=== PATIENT | female | born 2000 | race Caucasian/White ===

== ENCOUNTER 2025-04-25 11:23 | Emergency (ER) | payer SELFPAY ==
[~2025-04-25] VITALS: Ht 154.9 cm; Wt 54.0 kg
[2025-04-25 11:33] VITALS: TEMP 36.7; O2SAT 99
[2025-04-25] MEDS: LIDOCAINE HCL 1% 20ML VIAL INFIL ONE (13:45)
[2025-04-25] MEDS: BACITRACIN ZINC OINT UDPKT TOP ONE (13:46)
[2025-04-25] MEDS: IBUPROFEN 600MG TABLET PO ONE (13:46)
[2025-04-25] MEDS: TETANUS, DIPHTHERIA, PERTUSSIS VAC/PF 0.5ML (>10YR OLD) IM ONE (13:47)
[2025-04-25] MEDS ORDERED: BO1 TP (14:45)
[2025-04-25 15:30] VITALS: BP 104/69; PULSE 59; RESP 16; O2SAT 100
== END 2025-04-25 15:51 | disposition home or self-care (01) ==
LOC: ER 11:23
DX: S61.213A Laceration without foreign body of left middle finger without damage to nail, initial encounter (principal); W26.0XXA Contact with knife, initial encounter
CPT/HCPCS: 90715; 12002; 90471; 99283; J2003; Z7610